=== PATIENT | female | born 1960 | race Caucasian/White ===

== ENCOUNTER 2020-02-28 15:26 | Outpatient (CLI) | payer BC, SELFPAY ==
--- NOTE | ~2020-02-28 | MM_ITS ---
EXAMINATION: MM screening blaise BI w blanca HISTORY: Screening mammogram TECHNIQUE: Craniocaudal and mediolateral oblique 3-D tomosynthesis images were obtained and synthetic 2-D images were generated. Bilateral rotated lateral cc views. CAD analysis was submitted and interp reted. COMPARISON: 12/07/2018, 12/01/2017, 11/25/2016 bilateral digital screening mammogram examinations BREAST PARENCHYMAL COMPOSITION: There are scattered areas of fibroglandular density. FINDINGS: There is no evidence of suspicious mass, calcification, or architectural distortion to sugg est malignancy in either breast. There has been no suspicious interval change. IMPRESSION: 1. No mammographic evidence of malignancy. 2. Recommend routine screening mammography in one year. BI-RADS Category 1: Negative Reviewed, dictated and finalized at location A.
== END 2020-02-28 15:27 | disposition home or self-care (01) ==
LOC: ANHIMG 15:31
PROVIDERS: PCP Internal Medicine; Visit Provider Internal Medicine
DX: Z12.31 Encounter for screening mammogram for malignant neoplasm of breast (principal)
CPT/HCPCS: 77063; 77067

== ENCOUNTER 2021-03-05 14:34 | Outpatient (CLI) | payer BC, SELFPAY ==
--- NOTE | ~2021-03-05 | MM_ITS ---
EXAMINATION: MM screening blaise BI w blanca HISTORY: Screening mammogram TECHNIQUE: Craniocaudal and mediolateral oblique 3-D tomosynthesis images were obtained and synthetic 2-D images were generated. CAD analysis was submitted and interpreted. COMPARISON: 02/28/2020, 12/03/2018, 12/01/2017 bilateral digital screening mammogram examinations BREAST PARENCHYMAL COMPOSITION: The breasts are heterogeneously dense, which may obscure small masses . FINDINGS: There is no evidence of suspicious mass, calcification, or architectural distortion to sugg est malignancy in either breast. There has been no suspicious interval change. IMPRESSION: 1. No mammographic evidence of malignancy. 2. Recommend routine screening mammography in one year. BI-RADS Category 1: Negative Reviewed, dictated and finalized at location A.
== END 2021-03-05 14:35 | disposition home or self-care (01) ==
LOC: ANHIMG 14:37
PROVIDERS: PCP Internal Medicine; Visit Provider Internal Medicine
DX: Z12.31 Encounter for screening mammogram for malignant neoplasm of breast (principal)
CPT/HCPCS: 77063; 77067

== ENCOUNTER 2022-05-27 14:35 | Outpatient (CLI) | payer BC, SELFPAY ==
--- NOTE | ~2022-05-27 | MM_ITS ---
EXAMINATION: MM screening blaise BI w blanca HISTORY: Screening TECHNIQUE: Craniocaudal and mediolateral oblique 3-D tomosynthesis images were obtained and synthetic 2-D images were generated. CAD analysis was submitted and interpreted. COMPARISON: Comparison to multiple prior studies sequentially, with oldest reviewed study dated 03/14. BREAST PARENCHYMAL COMPOSITION: The breasts are heterogeneously dense, which may obscure small masses . FINDINGS: There is no evidence of suspicious mass, calcification, or architectural distortion to sugg est malignancy in either breast. There has been no suspicious interval change. IMPRESSION: 1. No mammographic evidence of malignancy. 2. Recommend routine screening mammography in one year. BI-RADS Category 1: Negative Reviewed, dictated and finalized at location B. NICAL ASSISTANT
== END 2022-05-27 14:36 | disposition home or self-care (01) ==
LOC: ANHIMG 14:36
PROVIDERS: PCP Internal Medicine; Visit Provider Internal Medicine
DX: Z12.31 Encounter for screening mammogram for malignant neoplasm of breast (principal)
CPT/HCPCS: 77063; 77067

== ENCOUNTER 2024-11-29 15:20 | Outpatient (CLI) | payer MEDICARE, SELFPAY ==
--- NOTE | ~2024-11-29 | MM_ITS ---
EXAMINATION: MM screening blaise BI w blanca HISTORY: Screening TECHNIQUE: Craniocaudal and mediolateral oblique 3-D tomosynthesis images were obtained and synthetic 2-D images were generated. CAD analysis was submitted and interpreted. COMPARISON: Comparison to multiple prior studies sequentially, with oldest reviewed study dated 11/25. BREAST PARENCHYMAL COMPOSITION: Not dense: There are scattered areas of fibroglandular density. FINDINGS: There is no evidence of suspicious mass, calcification, or architectural distortion to sugg est malignancy in either breast. There has been no suspicious interval change. IMPRESSION: 1. No mammographic evidence of malignancy. 2. Recommend routine screening mammography in one year. BI-RADS Category 1: Negative Reviewed, dictated and finalized at location A.
--- OUTSIDE RECORDS SUMMARY | 2024-11-29 16:34 | XMS_ITS | Clinical Summary ---
Author Organization [facility] Address [address] [place] [address] Care Team Providers Care Turbine Room Attendant Name Role Phone Dmitri Hutchinson MD Primary Care Provider Un available Social History Tobacco Use Types Packs/Day Years Used Date Smoking Tobacco: Never Assessed Comments Unknown Sex and Gender Information Value Date Recorded Sex Assigned at Not on file Legal Sex Female 8:00 PM CDT Gender Identity Not on file Sexual Orientation Not on file Last Filed Vital Signs Vital Sign Reading Time Taken Comments Blood Pressure 106/64 07/17/2016 1:38 PM EMERGENCY WORKER Pulse 76 07/17/2016 1:38 PM EMERGENCY WORKER Temperature - - Respiratory Rate - - Oxygen Saturation - - Inhaled Oxygen Concentration - - Weight 86.2 kg (190 lb) 07/17/2016 1:38 PM EMERGENCY WORKER Height 165.1 cm (5' 5) 04/11/2015 1:37 PM CDT Body Mass Index 31.62 04/11/2015 1:37 PM CDT Plan of Treatment Health Maintenance Due Date Last Done Comments Pneumococcal Vaccine: 50+ Ye ars (1 of 1 - PCV) 2009 Zoster Vaccines (1 of 2) 2009 Mammogram Screening 10/01/2017 10/02/2015 Colorectal Cancer Screening Colonoscopy (10 Years) 06/16/2023 06/16/2013 COVID-19 Vaccine (1 - 2023-2 5 season) 2024 Dexa Scan (General) 2024 DTaP, Tdap and Td Vaccines ( 2 - Td or Tdap) 07/17/2026 07/17/2016 RSV Immunization or 60+ Years (1 - 1-dose 75+ series) 2034 Hepatitis C Completed 12/27/2014 Meningococcal B Vaccine Aged Out No l onger eligible based on patient's age to complete this topic Meningococcal Vaccine Aged Out No ray theresa eligible based on patient's age to complete this topic RSV Immunizations Under 20 Months Aged Out No longer eligible based on patient's age to complete this topic Procedures Procedure Name Priority Date/Time Associated Diagnosis Comments MG SCREENING KATHRYN DIGI Routine 10/02/2015 2:21 PM CDT HEPATITIS C ANTIBODY Routine 12/27/2014 9:58 AM CDT COLONOSCOPY Routine 06/16/2013 12:00 AM EMERGENCY WORKER from Last 3 Months or Most Recently Relevant to Health Maintenance Results * MG SCREENING KATHRYN DIGI (10/02/2015 2:21 PM CDT) Anatomical Region Laterality Modality Breast Bilateral Mammography 10/02/2015 2:21 PM CDT 10/02/2015 2:21 PM CDT Narrative 10/02/2015 2:26 PM CDT CATRACHITO GEORGE ADMIT/SERVICE DATE: 10/02/15 ACCT: [id number] DISCHARGE DATE: : 1960 SEX: F ORD SITE: [facility] PT TYPE: REG CLI ORDERING MD: DMITRI HUTCHINSON MD STUDY DATE REPORT # ORDER # EXT ORDER ID 10/02/15 [id number] PROC CODE: [id number] PROCEDURE DESCRIPTION: MG SCREEN MAMMO DIGITAL BI IMPRESSION: STABLE MAMMOGRAPHIC APPEARANCE TO THE BREAST PARENCHYMA. ASSESSMENT: ACR BI-RADS CATEGORY 2 - BENIGN. RECOMMENDATION: 1: ROUTINE SCREENING MAMMOGRAM BILATERAL IN 1 YEAR COMMENTS: A NEGATIVE OR BENIGN MAMMOGRAPHY REPORT SHOULD NOT DISCOURAGE FOLLOW-UP OR BIOPSY OF A CLINICALLY SIGNIFICANT FINDING AND/OR ABNORMALITY. REGIONS OF DENSE BREAST TISSUE MAY OBSCURE SMALL NEOPLASMS. EXAMINATION: DIGITAL BILATERAL SCREENING MAMMOGRAM CLINICAL HISTORY: NO CURRENT SYMPTOMS OR COMPLAINTS. COMPARISON: 03/14/2014, 07/29/2011. TECHNIQUE: DIGITAL SCREENING MAMMOGRAPHY OF BOTH BREASTS WAS PERFORMED. THIS STUDY WAS READ WITH THE ASSISTANCE OF A COMPUTER-AIDED DETECTION SYSTEM. TISSUE DENSITY: THE BREAST TISSUE IS HETEROGENEOUSLY DENSE. FINDINGS: CRANIOCAUDAD AND MEDIAL LATERAL OBLIQUE MAMMOGRAPHIC VIEWS OF BOTH BREASTS WERE OBTAINED. THERE IS NO NEW MASS. THERE ARE NO SUSPICIOUS MICROCALCIFICATIONS. THERE ARE STABLE AREAS OF ASYMMETRIC BREAST PARENCHYMA. BENIGN-APPEARING CALCIFICATIONS ARE SEEN. ELECTRONICALLY SIGNED BY: RAHEL HERNANDEZ10/02/2015 2:22 PM Procedure Note Alejandro Tomas MD - 04/09/2018 [facility] ADMIT/SERVICE DATE:10/02/15 ACCT: [id number] DISCHARGE DATE: : 1960 SEX: F [facility] TYPE: REG CLI ORDERING MD:DMITRI HUTCHINSON MD STUDY DATE REPORT # ORDER # EXT ORDER ID 10/02/15 [id number] PROC CODE: [id number] PROCEDURE DESCRIPTION: MG SCREEN MAMMO DIGITAL BI IMPRESSION: STABLE MAMMOGRAPHIC APPEARANCE TO THE BREAST PARENCHYMA. ASSESSMENT: ACR BI-RADS CATEGORY 2 - BENIGN. RECOMMENDATION: 1: ROUTINE SCREENING MAMMOGRAM BILATERAL IN 1 YEAR COMMENTS: A NEGATIVE OR BENIGN MAMMOGRAPHY REPORT SHOULD NOT DISCOURAGE FOLLOW-UP OR BIOPSY OF A CLINICALLY SIGNIFICANT FINDING AND/OR ABNORMALITY. REGIONS OF DENSE BREAST TISSUE MAY OBSCURE SMALL NEOPLASMS. EXAMINATION: DIGITAL BILATERAL SCREENING MAMMOGRAM CLINICAL HISTORY: NO CURRENT SYMPTOMS OR COMPLAINTS. COMPARISON: 03/14/2014, 07/29/2011. TECHNIQUE: DIGITAL SCREENING MAMMOGRAPHY OF BOTH BREASTS WAS PERFORMED. THIS STUDY WAS READ WITH THE ASSISTANCE OF A COMPUTER-AIDED DETECTION SYSTEM. TISSUE DENSITY: THE BREAST TISSUE IS HETEROGENEOUSLY DENSE. FINDINGS: CRANIOCAUDAD AND MEDIAL LATERAL OBLIQUE MAMMOGRAPHIC VIEWS OF BOTH BREASTS WERE OBTAINED. THERE IS NO NEW MASS. THERE ARE NO SUSPICIOUS MICROCALCIFICATIONS. THERE ARE STABLE AREAS OF ASYMMETRIC BREAST PARENCHYMA. BENIGN-APPEARING CALCIFICATIONS ARE SEEN. ELECTRONICALLY SIGNED BY: RAHEL HERNANDEZ10/02/2015 2:22 PM Dmitri Hutchinson MD MAMMO Final Res ult * HEPATITIS C ANTIBODY (12/27/2014 9:58 AM CDT) HEPATITIS C AB NON-REACT SHAINA NON-REACT SHAINA [facility] TO EPIC CONVERSION SIGNAL TO CUTOFF 0.02 <1.00 [facility] TO [facility] CONVERSION Comment: Result Comment: Test Performed at: [facility] [place] [id number] [address] [id number] JIM LEDEZMA DO,MPH 12/27/2014 9:58 AM CDT 12/27/2014 9:58 AM CDT Narrative [facility] TO EPIC CONVERSION - 12/28/2014 11:53 AM CDT Result Communication: Mail Results to Patient Dmitri Hutchinson MD LABORATORY Final Res ult Performing Organization Address [facility] Co de Phone Number [facility] TO EPIC CONVERSION * Colonoscopy (06/16/2013 12:00 AM EMERGENCY WORKER) 06/16/2013 06/16/2013 Narrative [facility] TO EPIC CONVERSION - 06/16/2013 12:00 AM EMERGENCY WORKER Documented hx of procedure Procedure Note Alejandro Tomas MD - 04/19/2018 Documented hx of procedure Alejandro Fowler Md, MD GI PROCEDURE ORDERABLES Final Result Performing Organization Address [facility] Co de Phone Number [facility] TO EPIC CONVERSION from Last 3 Months or Most Recently Relevant to Health Maintenance Care Teams Turbine Room Attendant Relationship Specialty Start Date End Date Dmitri Hutchinson MD PCP - General 07/17/16
--- OUTSIDE RECORDS SUMMARY | 2024-11-29 16:34 | XMS_ITS | Encounter Summary ---
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 Historical Provider Final Res ult documented in this encounter Visit Diagnoses Not on filedocumented in this encounter Care Teams Cotton Feeder Relationship Specialty Start Date End Date Yamileth Smith MD [address] [place] [address] PCP - General Internal Medicine 09/07/18 documented as of this encounter
--- OUTSIDE RECORDS SUMMARY | 2024-11-29 16:35 | XMS_ITS | Referral Summary ---
Author Organization [facility] Address [address] [place] [phone] Care Team Providers Care Terminal Block Assembler Name Role Phone Yamileth Smith MD Primary Care Provider [phone] Encounters Date Type Department Care Team Description 10/13/2024 Telephone [facility] Internal Medicine [address] [place] [phone] Yamileth Smith MD Medical Question/Miscellaneous 10/04/2024 4:00 PM CDT Office Visit [facility] Internal Medicine [address] [place] [phone] Yamileth Smith MD Essential hypertension (Primary Dx); Gastroesophageal reflux disease without esophagitis; Migraine without aura and without status migrainosus, not intractable; Mixed hyperlipidemia; BMI 32.0-32.9,adult; Primary insomnia; Colon cancer screening 09/30/2024 Orders Only [facility] Internal Medicine [address] [place] [phone] Yamileth Smith MD from Last 3 Months Allergies No known active allergies Medications simvastatin (ZOCOR) 20 mg tablet Take 1 tablet (20 mg total) by mouth nightly 90 tablet 5 Active omeprazole (PriLOSEC) 40 mg capsule Take 1 capsule (40 mg total) by mouth daily 90 capsule 5 Active hydroCHLOROthia zide 12.5 mg tablet Take 1 tablet (12.5 mg total) by mouth daily 90 tablet 1 5 Active famotidine (PEPCID) 40 mg tablet Take 1 tablet (40 mg total) by mouth daily 90 tablet 1 5 12/29/19 25 Active clobetasoL (TEMOVATE) 0.05 % ointment Apply topically 2 (two) times a day 60 g 3 5 Active losartan (COZAAR) 100 mg tablet Take 1 tablet (100 mg total) by mouth daily 90 tablet 1 5 07/01/19 26 Active traZODone (DESYREL) 100 mg tablet Take 1 tablet (100 mg total) by mouth nightly as needed for sleep 90 tablet 1 5 Active HYDROcodone-uli taminophen (NORCO) 5-325 mg per tabletIndicatio ns:Pain Take 1 tablet by mouth daily as needed for pain 30 tablet 5 Active HYDROcodone-uli taminophen (NORCO) 5-325 mg per tabletIndicatio ns:Pain Take 1 tablet by mouth daily as needed for pain 30 tablet 5 11/15/19 25 Discontinu ed(Reorder ) Active Problems Problem Noted Date Diagnosed Date Primary insomnia 10/04/2024 Assessment & Plan (10/04/2024 4:17 PM CDT): Patient had very good result with the Remeron but she gained weight. She likes to try different medication because of the weight gain. Will stop Remeron and start her on trazodone 100 mg q.h.s.. Skin rash 07/01/2024 Assessment & Plan (07/01/2024 4:45 PM INSULATION MACHINE OPERATOR): Patient with skin rash on the rest of both hands and lower back area. It looks like dermatitis. She did not respond well to triamcinolone. We will try Temovate 0.05% twice daily and will make a referral to see a sales agent because of the chronicity of the symptoms. Pain in both upper extremities 01/15/2021 Assessment & Plan (01/15/2021 4:57 PM CDT): Patient will continue to wear wrist braces. Will obtain nerve conduction study of both arms and make recommendations after that. Numbness and tingling in right hand 10/09/2020 Assessment & Plan (10/09/2020 4:37 PM CDT): Patient has symptoms of carpal tunnel syndrome I offered her nerve conduction study but she declined. Patient will try wrist splint and she will call if she changes her mind Pap smear for cervical cancer screening 12/23/19 20 Assessment & Plan (10/09/2020 4:37 PM CDT): Followed by Gynecology Assessment & Plan (12/23/2019 4:54 PM CDT): The patient is under the care of camp housekeeper for Pap smear and mammogram. Her last Pap smear was 3 years ago. Migraine without aura and wi thout status migrainosus, not intractable 04/05/2019 Assessment & Plan (10/04/2024 8:17 AM CDT): Asymptomatic. Stable without medications Assessment & Plan (06/02/2023 1:13 PM INSULATION MACHINE OPERATOR): Asymptomatic. Stable without medications Assessment & Plan (02/24/2023 8:25 AM CDT): Asymptomatic Assessment & Plan (11/25/2022 4:59 PM CDT): Asymptomatic Assessment & Plan (11/05/2021 1:09 PM CDT): Asymptomatic Assessment & Plan (08/06/2021 4:32 PM INSULATION MACHINE OPERATOR): Patient has no headache Assessment & Plan (10/09/2020 4:36 PM CDT): Asymptomatic Assessment & Plan (07/12/2019 4:23 PM INSULATION MACHINE OPERATOR): Asymptomatic Assessment & Plan (04/05/2019 3:25 PM CDT): We will start her on Imitrex 50 mg p.r.n. And side effects were explained and how to take the medication was explained. Will obtain MRI of the brain for further evaluation. She will call for persistent headache. Essential hypertension 10/14/2016 Assessment & Plan (10/04/2024 8:17 AM CDT): Continue current medications. Discussed low-salt diet. Discussed exercise on regular basis. Will continue to monitor Assessment & Plan (07/01/2024 4:44 PM INSULATION MACHINE OPERATOR): Patient stated that her blood pressure sometimes runs high. She consumes large amount of salt. We discussed the importance of low-salt diet.. Increase losartan to 100 mg daily. Continue hydrochlorothiazide 25 mg daily.. Discussed exercise on regular basis. Will continue to monitor Assessment & Plan (06/02/2023 1:13 PM INSULATION MACHINE OPERATOR): Continue current medications. Discussed low-salt diet. Discussed exercise on regular basis. Will continue to monitor Assessment & Plan (02/24/2023 8:25 AM CDT): Continue current medications. Discussed low-salt diet. Discussed exercise on regular basis. Will continue to monitor Assessment & Plan (11/25/2022 4:59 PM CDT): Continue current medications. Discussed low-salt diet. Discussed exercise on regular basis. Will continue to monitor Assessment & Plan (08/15/2022 12:54 PM INSULATION MACHINE OPERATOR): Continue current medications. Discussed low-salt diet. Discussed exercise on regular basis. Will continue to monitor Assessment & Plan (05/13/2022 1:06 PM INSULATION MACHINE OPERATOR): Continue current medications. Discussed low-salt diet. Discussed exercise on regular basis. Will continue to monitor Assessment & Plan (02/04/2022 1:11 PM CDT): Continue current medications. Discussed low-salt diet. Discussed exercise on regular basis. Will continue to monitor Assessment & Plan (11/05/2021 1:08 PM CDT): Continue current medications. Discussed low-salt diet. Discussed exercise on regular basis. Will continue to monitor Assessment & Plan (08/06/2021 12:58 PM INSULATION MACHINE OPERATOR): Continue current medications. Discussed low-salt diet. Discussed exercise on regular basis. Will continue to monitor Assessment & Plan (04/16/2021 4:56 PM CDT): Continue current medications. Discussed low-salt diet. Discussed exercise on regular basis. Will continue to monitor Assessment & Plan (01/15/2021 12:52 PM CDT): Continue current medications. Discussed low-salt diet. Discussed exercise on regular basis. Will continue to monitor Assessment & Plan (10/09/2020 4:36 PM CDT): Continue current medications. Discussed low-salt diet. Discussed exercise on regular basis. Will continue to monitor Assessment & Plan (03/27/2020 4:56 PM CDT): Continue current medications. Discussed low-salt diet. Discussed exercise on regular basis. Will continue to monitor Assessment & Plan (12/23/2019 4:54 PM CDT): Continue current medications. Discussed low-salt diet. Discussed exercise on regular basis. Will continue to monitor Assessment & Plan (07/12/2019 4:23 PM INSULATION MACHINE OPERATOR): Continue current medications. Discussed low-salt diet. Discussed exercise on regular basis. Will continue to monitor Assessment & Plan (04/05/2019 3:24 PM CDT): Continue current medications. Discussed low-salt diet. Discussed exercise on regular basis. Will continue to monitor Assessment & Plan (12/30/2018 9:01 PM CDT): Continue current medications. Discussed low-salt diet. Discussed exercise on regular basis. Will continue to monitor Gastroesophageal reflux disease without esophagi tis 10/14/2016 Assessment & Plan (10/04/2024 8:17 AM CDT): Controlled on Prilosec and Pepcid Assessment & Plan (07/01/2024 8:28 AM INSULATION MACHINE OPERATOR): Controlled on Prilosec and Pepcid Assessment & Plan (02/24/2023 5:22 PM CDT): Controlled on Prilosec and Pepcid Assessment & Plan (11/25/2022 4:59 PM CDT): Controlled on Pepcid Assessment & Plan (08/15/2022 12:54 PM INSULATION MACHINE OPERATOR): Controlled on Prilosec and discussed avoidance of food that triggers the symptoms Assessment & Plan (05/13/2022 1:06 PM INSULATION MACHINE OPERATOR): Controlled on Prilosec Assessment & Plan (02/04/2022 1:11 PM CDT): Controlled on Prilosec Assessment & Plan (11/05/2021 1:08 PM CDT): Controlled on Prilosec Assessment & Plan (08/06/2021 12:58 PM INSULATION MACHINE OPERATOR): Controlled on omeprazole Assessment & Plan (04/16/2021 4:56 PM CDT): Asymptomatic Assessment & Plan (01/15/2021 12:52 PM CDT): Controlled on diet and omeprazole Assessment & Plan (03/27/2020 4:56 PM CDT): Controlled on Pepcid Assessment & Plan (12/23/2019 4:54 PM CDT): Controlled on Prilosec and Pepcid Assessment & Plan (07/12/2019 4:23 PM INSULATION MACHINE OPERATOR): Controlled on Prilosec Assessment & Plan (04/05/2019 3:24 PM CDT): Continue Prilosec in the morning and we will add Pepcid 40 mg at night. The patient was advised to call us in 3-4 weeks for persistent symptoms and in that case will make a referral to see a test lead for EGD Assessment & Plan (12/30/2018 9:02 PM CDT): Controlled on current medication Mixed hyperlipidemia 10/14/2016 Assessment & Plan (10/04/2024 8:17 AM CDT): Controlled on current medications. Continue low-fat diet. Will continue to monitor . Assessment & Plan (07/01/2024 8:28 AM INSULATION MACHINE OPERATOR): Controlled on current medications. Continue low-fat diet. Will continue to monitor . Assessment & Plan (06/02/2023 1:13 PM INSULATION MACHINE OPERATOR): Controlled on current medications. Continue low-fat diet. Will continue to monitor . Assessment & Plan (02/24/2023 8:25 AM CDT): Controlled on current medications. Continue low-fat diet. Will continue to monitor . Assessment & Plan (11/25/2022 4:59 PM CDT): Controlled on current medications. Continue low-fat diet. Will continue to monitor . Assessment & Plan (08/15/2022 12:54 PM INSULATION MACHINE OPERATOR): Controlled on current medications. Continue low-fat diet. Will continue to monitor . Assessment & Plan (05/13/2022 1:07 PM INSULATION MACHINE OPERATOR): Controlled on current medications. Continue low-fat diet. Will continue to monitor . Assessment & Plan (02/04/2022 1:11 PM CDT): Controlled on current medications. Continue low-fat diet. Will continue to monitor . Assessment & Plan (11/05/2021 1:08 PM CDT): Controlled on current medications. Continue low-fat diet. Will continue to monitor . Assessment & Plan (08/06/2021 12:58 PM INSULATION MACHINE OPERATOR): Controlled on current medications. Continue low-fat diet. Will continue to monitor . Assessment & Plan (04/16/2021 4:56 PM CDT): Controlled on current medications. Continue low-fat diet. Will continue to monitor . Assessment & Plan (01/15/2021 12:52 PM CDT): Controlled on current medications. Continue low-fat diet. Will continue to monitor . Assessment & Plan (10/09/2020 4:36 PM CDT): Controlled on current medications. Continue low-fat diet. Will continue to monitor . Assessment & Plan (03/27/2020 4:56 PM CDT): Controlled on current medications. Continue low-fat diet. Will continue to monitor . Assessment & Plan (12/23/2019 4:54 PM CDT): Controlled on current medications. Continue low-fat diet. Will continue to monitor . Assessment & Plan (07/12/2019 4:23 PM INSULATION MACHINE OPERATOR): Controlled on current medications. Continue low-fat diet. Will continue to monitor . Assessment & Plan (04/05/2019 3:24 PM CDT): Controlled on current medications. Continue low-fat diet. Will continue to monitor . Assessment & Plan (12/30/2018 9:02 PM CDT): Controlled on current medications. Continue low-fat diet. Will continue to monitor . Chronic left-sided low back pain with left-sided sciatica 10/14/2016 Assessment & Plan (07/01/2024 8:28 AM INSULATION MACHINE OPERATOR): Controlled on Delavan p.r.n. Assessment & Plan (06/02/2023 1:13 PM INSULATION MACHINE OPERATOR): Controlled on Delavan p.r.n. Assessment & Plan (11/25/2022 4:59 PM CDT): Controlled on Delavan p.r.n. Assessment & Plan (08/15/2022 12:55 PM INSULATION MACHINE OPERATOR): Controlled on Delavan p.r.n. with no side effects with the medication Assessment & Plan (05/13/2022 1:07 PM INSULATION MACHINE OPERATOR): Controlled on Delavan Assessment & Plan (02/04/2022 1:11 PM CDT): Controlled on Delavan Assessment & Plan (11/05/2021 1:09 PM CDT): Controlled on Delavan Assessment & Plan (08/06/2021 12:58 PM INSULATION MACHINE OPERATOR): Controlled on Delavan Assessment & Plan (04/16/2021 4:56 PM CDT): Continue Delavan p.r.n.. Advised to avoid taking NSAIDs more than on occasional basis Assessment & Plan (01/15/2021 12:52 PM CDT): Controlled on Delavan p.r.n. Assessment & Plan (10/09/2020 4:36 PM CDT): Continue Delavan p.r.n. Assessment & Plan (03/27/2020 4:56 PM CDT): Controlled on Delavan and the patient has no signs of abuse Assessment & Plan (12/23/2019 4:54 PM CDT): Controlled on Delavan Assessment & Plan (07/12/2019 4:23 PM INSULATION MACHINE OPERATOR): Controlled on Delavan Assessment & Plan (04/05/2019 3:25 PM CDT): Controlled on Delavan Assessment & Plan (12/30/2018 9:02 PM CDT): The patient has a chronic back pain secondary to bulging disc and she takes Delavan p.r.n. With good relief. Immunizations Immunization Administration Dates Next Due Influenza, Quadrivalent, Split, Intramuscular Influenza, Quadrivalent, Spl it, Preservative Free, Intramuscular 06/02/2023,05/13/2022 Influenza, Trivalent, Preservative Free, Intramu scular 07/01/2024 Pneumococcal Conjugate Pcv20 07/01/2024 Tdap 07/12/2019,07/17/2016 Social History Tobacco Use Types Packs/Day Years Used Date Smoking Tobacco: Former Cigarettes Q uit: 01/01/2000 Smokeless Tobacco: Never Tobacco Cessation:Counseling Given: Not Answered Alcohol Use Standard Drinks/Week Comments Not Currently 0 (1 standard drink = 0.6 oz pur e alcohol) AUDIT-C Answer Date Recorded Q1: How often do you have a drink containing alcohol? Never 10/04/2024 Q2: How many drinks containi ng alcohol do you have on a typical day when you are drinking? Patient does not drink Q3: How often do you have si x or more drinks on one occasion? Never 10/04/2024 PHQ-2 Answer Date Recorded PHQ-2 Total Score (If total score is 3 or more points, staff should administer the PHQ-9) 0 10/04/2024 Comments Unknown Sex and Gender Information Value Date Recorded Sex Assigned at Not on file Legal Sex Female 3:40 AM INSULATION MACHINE OPERATOR Gender Identity Female 11/05/2021 8:51 AM CDT Sexual Orientation Not on file Last Filed Vital Signs Vital Sign Reading Time Taken Comments Blood Pressure 128/80 10/04/2024 3:50 PM CDT Pulse 62 10/04/2024 3:50 PM CDT Temperature 36.2 C (97.1 F) 10/04/2024 3:50 PM CDT Respiratory Rate 16 10/04/2024 3:50 PM CDT Oxygen Saturation 97% 10/04/2024 3:50 PM CDT Inhaled Oxygen Concentration - - Weight 92.3 kg (203 lb 6.4 oz) 10/04/2024 3:50 P M CDT Height 167.6 cm (5' 6) 10/04/2024 3:50 PM CDT Body Mass Index 32.83 10/04/2024 3:50 PM CDT Plan of Treatment Not on file Procedures Procedure Name Priority Date/Time Associated Diagnosis Comments COMPREHENSIVE METABOLIC PANEL Routine 09/30/2024 11:41 AM CDT LIPID PANEL Routine 09/30/2024 11:41 AM CDT CBC WITH AUTO DIFFERENTIAL Routine 09/30/2024 11:41 AM CDT HEPATITIS C ANTIBODY Routine 08/14/2022 10:20 AM INSULATION MACHINE OPERATOR Encounter for hepatitis C screening test for low risk patient HM MAMMOGRAPHY Routine 05/27/2022 COLONOSCOPY Routine 02/11/2022 from Last 3 Months or Most Recently Relevant to Health Maintenance Results * (ABNORMAL) CBC with auto differential (09/30/2024 11:41 AM CDT) WBC 7.3 3.8 - 10.8 Thousand/u L [facility] RBC, POC 5.05 3.80 - 5.10 Million/uL [facility] Hgb 15.2 11.7 - 15.5 g/dL [facility] Hct 46.6(H) 35.0 - 45.0 % [facility] MCV 92.3 80.0 - 100.0 fL [facility] MCH 30.1 27.0 - 33.0 pg [facility] MCHC 32.6 32.0 - 36.0 g/dL [facility] Comment: For adults, a slight decrease in the calculated MCHC value (in the range of 30 to 32 g/dL) is most likely not clinically significant; however, it should be interpreted with caution in correlation with other red cell parameters and the patient's clinical condition. Rdw 13.3 11.0 - 15.0 % [facility] Platelets 238 140 - 400 Thousand/u L [facility] MPV 10.4 7.5 - 12.5 fL [facility] Neutrophils, abs 4,198 1,500 - 7,800 cells/uL [facility] Lymphocytes, abs 2,234 850 - 3,900 cells/uL [facility] Monocyte abs 540 200 - 950 cells/uL [facility] Eosinophils, abs 270 15 - 500 cells/uL [facility] Basophils, abs 58 0 - 200 cells/uL [facility] Neutrophils 57.5 % [facility] Lymphocyte pct 30.6 % [facility] Monocytes 7.4 % [facility] Eosinophils 3.7 % [facility] Basophils 0.8 % [facility] 09/30/2024 11:4 1 AM CDT 09/30/2024 11:41 AM CDT [facility] - 10/01/2024 2:11 AM CDT FASTING:YES FASTING: YES us Yamileth Smith MD LAB BLOOD ORDERABLES Final Result [facility] [id number] [place] [address] * (ABNORMAL) Lipid panel (09/30/2024 11:41 AM CDT) [facility] Cholesterol 182 <200 mg/dL [facility] HDL 47(L) > OR = 50 mg/dL [facility] Triglycerides 260(H) <150 mg/dL [facility] Comment: If a non-fasting specimen was collected, consider repeat triglyceride testing on a fasting specimen if clinically indicated. Kirill et al. J. of Clin. Lipidol. 2015;9:129-169. LDL 98 mg/dL (calc) [facility] Comment: Reference range: <100 Desirable range <100 mg/dL for primary prevention; <70 mg/dL for patients with CHD or diabetic patients with > or = 2 CHD risk factors. LDL-C is now calculated using the Magdi-Bonilla calculation, which is a validated novel method providing better accuracy than the Friedewald equation in the estimation of LDL-C. Magdi SS et al. JAROD. 2013;310(19): 5255-6913 (http://education.[employer]/faq/RXB532) Chol/HDL ratio 3.9 <5.0 (calc) [facility] Non-HDL, (LDL+VLDL) 135(H) <130 mg/dL (calc) [facility] Comment: For patients with diabetes plus 1 major ASCVD risk factor, treating to a non-HDL-C goal of <100 mg/dL (LDL-C of <70 mg/dL) is considered a therapeutic option. 09/30/2024 11:4 1 AM CDT 09/30/2024 11:41 AM CDT Narrative [facility] - 10/01/2024 2:11 AM CDT FASTING:YES FASTING: YES Yamileth Smith MD LAB BLOOD ORDERABLES Final Result [facility] [address] [place] [address] * (ABNORMAL) Comprehensive metabolic panel (09/30/2024 11:41 AM CDT) [facility] Glucose 111(H) 65 - 99 mg/dL [facility] Comment: Fasting reference interval For someone without known diabetes, a glucose value between 100 and 125 mg/dL is consistent with prediabetes and should be confirmed with a follow-up test. BUN 16 7 - 25 mg/dL [facility] Creatinine 0.72 0.50 - 1.05 mg/dL [facility] eGFR 93 > OR = 60 mL/min/1.7 3m2 [facility] BUN/creat ratio SEE NOTE: 6 - 22 (calc) [facility] Comment: Not Reported: BUN and Creatinine are within reference range. Sodium 139 135 - 146 mmol/L [facility] Potassium, pl 4.3 3.5 - 5.3 mmol/L [facility] Chloride 99 98 - 110 mmol/L [facility] CO2 33(H) 20 - 32 mmol/L [facility] Calcium 9.9 8.6 - 10.4 mg/dL [facility] Protein, sr 6.8 6.1 - 8.1 g/dL [facility] Albumin 4.4 3.6 - 5.1 g/dL [facility] GLOBULIN 2.4 1.9 - 3.7 g/dL (calc) [facility] Alb/glob ratio 1.8 1.0 - 2.5 (calc) [facility] Bilirubin, total 0.4 0.2 - 1.2 mg/dL [facility] Alk phos 87 37 - 153 U/L [facility] AST 21 10 - 35 U/L [facility] ALT (SGPT) 32(H) 6 - 29 U/L [facility] 09/30/2024 11:4 1 AM CDT 09/30/2024 11:41 AM CDT Narrative [facility] - 10/01/2024 2:11 AM CDT FASTING:YES FASTING: YES us Yamileth Smith MD LAB BLOOD ORDERABLES Final Result [facility] [address] [place] [address] * Hepatitis C antibody (08/14/2022 10:20 AM INSULATION MACHINE OPERATOR) Hep C Ab NON-REACTI VE NON-REACT SHAIN[facility] SIGNAL TO CUT-OFF <0.02 <1.00 [facility] Comment: HCV antibody was non-reactive. There is no laboratory evidence of HCV infection. In most cases, no further action is required. However, if recent HCV exposure is suspected, a test for HCV RNA (test code 60246) is suggested. For additional information please refer to http://education.[employer]/faq/OXI97s5 (This link is being provided for informational/ educational purposes only.) Blood 08/14/2022 10:2 0 AM INSULATION MACHINE OPERATOR 08/14/2022 10:21 AM INSULATION MACHINE OPERATOR Yamileth Smith MD LAB MICROBIOLOGY - GENERAL ORDERABLES Final Result [facility] [id number] [id number] * HM MAMMOGRAPHY (05/27/2022) Mammography Normal Historical Provider MD HEALTH MAINTENANCE Final Result * Colonoscopy (02/11/2022) Anatomical Region Laterality Modality Other Narrative 02/11/2022 Follow up with biopsy Historical Provider ENDOSCOPY PROCEDURES Lupis l Result from Last 3 Months or Most Recently Relevant to Health Maintenance Insurance [employer]IC[employer] PPO Care Teams Terminal Block Assembler Relationship Specialty Start Date End Date Yamileth Smith MD [facility] [place] [address] PCP - General Internal Medicine 09/07/18
--- OUTSIDE RECORDS SUMMARY | 2024-11-29 16:35 | XMS_ITS | Clinical Summary ---
Author Organization [facility] Address [address] [place] [address] Care Team Providers Care Account Services Representative Name Role Phone Yamileth Smith MD Primary Care Provider [phone] Allergies No known active allergies Medications simvastatin (ZOCOR) 20 mg tablet Take 1 tablet (20 mg total) by mouth nightly 90 tablet 1 5 Active omeprazole (PriLOSEC) 40 mg capsule Take 1 capsule (40 mg total) by mouth daily 90 capsule 1 5 Active hydroCHLOROthia zide 12.5 mg tablet [...] 07/01/2024 Assessment & Plan (07/01/2024 4:45 PM CORRECTION OFFICER HEAD): Patient with skin rash on the rest of both hands and lower back area. It looks like dermatitis. She did not respond well to triamcinolone. We will try Temovate 0.05% twice daily and will make a referral to see a scuba diving instructor because of the chronicity of the symptoms. [...] The patient is under the care of job tracer for Pap smear and mammogram. Her last Pap smear was 3 years ago. Migraine without aura and wi thout status migrainosus, not intractable 04/05/2019 Assessment & Plan (10/04/2024 8:17 AM CDT): Asymptomatic. Stable without medications Assessment & Plan (06/02/2023 1:13 PM CORRECTION OFFICER HEAD): Asymptomatic. Stable without medications Assessment & Plan (02/24/2023 8:25 AM CDT): Asymptomatic Assessment & Plan (11/25/2022 4:59 PM CDT): Asymptomatic Assessment & Plan (11/05/2021 1:09 PM CDT): Asymptomatic Assessment & Plan (08/06/2021 4:32 PM CORRECTION OFFICER HEAD): Patient has no headache Assessment & Plan (10/09/2020 4:36 PM CDT): Asymptomatic Assessment & Plan (07/12/2019 4:23 PM CORRECTION OFFICER HEAD): Asymptomatic Assessment & Plan (04/05/2019 3:25 PM [...] monitor Assessment & Plan (07/01/2024 4:44 PM CORRECTION OFFICER HEAD): Patient stated that her blood pressure sometimes runs high. She consumes large amount of salt. We discussed the importance of low-salt diet.. Increase losartan to 100 mg daily. Continue hydrochlorothiazide 25 mg daily.. Discussed exercise on regular basis. Will continue to monitor Assessment & Plan (06/02/2023 1:13 PM CORRECTION OFFICER HEAD): Continue current medications. Discussed low-salt diet. Discussed [...] monitor Assessment & Plan (08/15/2022 12:54 PM CORRECTION OFFICER HEAD): Continue current medications. Discussed low-salt diet. Discussed exercise on regular basis. Will continue to monitor Assessment & Plan (05/13/2022 1:06 PM CORRECTION OFFICER HEAD): Continue current medications. Discussed low-salt diet. Discussed [...] monitor Assessment & Plan (08/06/2021 12:58 PM CORRECTION OFFICER HEAD): Continue current medications. Discussed low-salt diet. Discussed [...] monitor Assessment & Plan (07/12/2019 4:23 PM CORRECTION OFFICER HEAD): Continue current medications. Discussed low-salt diet. Discussed [...] Pepcid Assessment & Plan (07/01/2024 8:28 AM CORRECTION OFFICER HEAD): Controlled on Prilosec and Pepcid Assessment & Plan (02/24/2023 5:22 PM CDT): Controlled on Prilosec and Pepcid Assessment & Plan (11/25/2022 4:59 PM CDT): Controlled on Pepcid Assessment & Plan (08/15/2022 12:54 PM CORRECTION OFFICER HEAD): Controlled on Prilosec and discussed avoidance of food that triggers the symptoms Assessment & Plan (05/13/2022 1:06 PM CORRECTION OFFICER HEAD): Controlled on Prilosec Assessment & Plan (02/04/2022 1:11 PM CDT): Controlled on Prilosec Assessment & Plan (11/05/2021 1:08 PM CDT): Controlled on Prilosec Assessment & Plan (08/06/2021 12:58 PM CORRECTION OFFICER HEAD): Controlled on omeprazole Assessment & Plan (04/16/2021 4:56 PM CDT): Asymptomatic Assessment & Plan (01/15/2021 12:52 PM CDT): Controlled on diet and omeprazole Assessment & Plan (03/27/2020 4:56 PM CDT): Controlled on Pepcid Assessment & Plan (12/23/2019 4:54 PM CDT): Controlled on Prilosec and Pepcid Assessment & Plan (07/12/2019 4:23 PM CORRECTION OFFICER HEAD): Controlled on Prilosec Assessment & Plan (04/05/2019 3:24 PM CDT): Continue Prilosec in the morning and we will add Pepcid 40 mg at night. The patient was advised to call us in 3-4 weeks for persistent symptoms and in that case will make a referral to see a boner meat for EGD Assessment & Plan (12/30/2018 9:02 PM CDT): Controlled on current medication Mixed hyperlipidemia 10/14/2016 Assessment & Plan (10/04/2024 8:17 AM CDT): Controlled on current medications. Continue low-fat diet. Will continue to monitor . Assessment & Plan (07/01/2024 8:28 AM CORRECTION OFFICER HEAD): Controlled on current medications. Continue low-fat diet. Will continue to monitor . Assessment & Plan (06/02/2023 1:13 PM CORRECTION OFFICER HEAD): Controlled on current medications. Continue low-fat diet. Will continue to monitor . Assessment & Plan (02/24/2023 8:25 AM CDT): Controlled on current medications. Continue low-fat diet. Will continue to monitor . Assessment & Plan (11/25/2022 4:59 PM CDT): Controlled on current medications. Continue low-fat diet. Will continue to monitor . Assessment & Plan (08/15/2022 12:54 PM CORRECTION OFFICER HEAD): Controlled on current medications. Continue low-fat diet. Will continue to monitor . Assessment & Plan (05/13/2022 1:07 PM CORRECTION OFFICER HEAD): Controlled on current medications. Continue low-fat diet. Will continue to monitor . Assessment & Plan (02/04/2022 1:11 PM CDT): Controlled on current medications. Continue low-fat diet. Will continue to monitor . Assessment & Plan (11/05/2021 1:08 PM CDT): Controlled on current medications. Continue low-fat diet. Will continue to monitor . Assessment & Plan (08/06/2021 12:58 PM CORRECTION OFFICER HEAD): Controlled on current medications. Continue low-fat diet. [...] . Assessment & Plan (07/12/2019 4:23 PM CORRECTION OFFICER HEAD): Controlled on current medications. Continue low-fat diet. [...] 10/14/2016 Assessment & Plan (07/01/2024 8:28 AM CORRECTION OFFICER HEAD): Controlled on [place] p.r.n. Assessment & Plan (06/02/2023 1:13 PM CORRECTION OFFICER HEAD): Controlled on [place] p.r.n. Assessment & Plan (11/25/2022 4:59 PM CDT): Controlled on [place] p.r.n. Assessment & Plan (08/15/2022 12:55 PM CORRECTION OFFICER HEAD): Controlled on [place] p.r.n. with no side effects with the medication Assessment & Plan (05/13/2022 1:07 PM CORRECTION OFFICER HEAD): Controlled on [place] Assessment & Plan (02/04/2022 1:11 PM CDT): Controlled on [place] Assessment & Plan (11/05/2021 1:09 PM CDT): Controlled on [place] Assessment & Plan (08/06/2021 12:58 PM CORRECTION OFFICER HEAD): Controlled on [place] Assessment & Plan (04/16/2021 4:56 PM CDT): Continue [place] p.r.n.. Advised to avoid taking NSAIDs more than on occasional basis Assessment & Plan (01/15/2021 12:52 PM CDT): Controlled on [place] p.r.n. Assessment & Plan (10/09/2020 4:36 PM CDT): Continue [place] p.r.n. Assessment & Plan (03/27/2020 4:56 PM CDT): Controlled on [place] and the patient has no signs of abuse Assessment & Plan (12/23/2019 4:54 PM CDT): Controlled on [place] Assessment & Plan (07/12/2019 4:23 PM CORRECTION OFFICER HEAD): Controlled on [place] Assessment & Plan (04/05/2019 3:25 PM CDT): Controlled on [place] Assessment & Plan (12/30/2018 9:02 PM CDT): The patient has a chronic back pain secondary to bulging disc and she takes [place] p.r.n. With good relief. Encounters Date Type Department Care Team Description 10/13/2024 Telephone [facility] Medical [facility] Internal Medicine [address] [place] [address] [place] [phone] Yamileth Smith MD Medical Question/Miscellaneous 10/04/2024 4:00 PM CDT Office Visit [facility] Internal Medicine [address] [place] [address] [place] [phone] Yamileth Smith MD Essential hypertension (Primary Dx); Gastroesophageal reflux disease without esophagitis; Migraine without aura and without status migrainosus, not intractable; Mixed hyperlipidemia; BMI 32.0-32.9,adult; Primary insomnia; Colon cancer screening 09/30/2024 Orders Only [facility] Medical [facility] Internal Medicine [address] [place] [address] [place] [phone] Yamileth Smith MD from Last 3 Months Immunizations Immunization Administration Dates Next Due Influenza, Quadrivalent, Split, Intramuscular Influenza, Quadrivalent, Spl it, Preservative Free, Intramuscular 06/02/2023,05/13/2022 Influenza, Trivalent, Preservative Free, Intramu scular 07/01/2024 Pneumococcal Conjugate Pcv20 07/01/2024 Tdap 07/12/2019,07/17/2016 Surgical History Surgery Date Site/Laterality Comments SECTION HYSTERECTOMY Medical History Medical History Date Comments Essential hypertension Lumbago with sciatica, left side GERD (gastroesophageal reflux disease) HLD (hyperlipidemia) Family History Medical History Relation Name Comments Diabetes Mother Relation Name Status Comments Father Mother Social History Tobacco Use Types Packs/Day Years [...] on file Legal Sex Female 3:40 AM CORRECTION OFFICER HEAD Gender Identity Female 11/05/2021 8:51 AM CDT Sexual Orientation Not on file Obstetrics History Last Filed Vital Signs Vital Sign Reading [...] 10/04/2024 3:50 PM CDT Plan of Treatment Health Maintenance Due Date Last Done Comments Osteoporosis Screening-Bone Density Scan 1960 Hepatitis B Screening 1977 Zoster Vaccine (1 of 2) 2009 Colon Cancer Screening-FIT 02/11/202302/11, 02/11/2022, 05/15/2020, Additional history exists Breast Cancer Screening-Mammogram 05/27/2023 05/27/2022, 03/05/2021, 02/28/2020, Additional history exists Covid-19 Vaccine (2023-2 5 season) 2024 06/24/2021, 10/02/2020, 09/11/2020 Colon Cancer Screening-Colonoscopy 02/11/2025 02/11/2022, 02/11/2022, 10/01/2010 Well Visit 65+ 07/01/2025 07/01/2024 Depression Screening 10/04/2025 10/04/2024, 07/01/2024, 11/25/2022, Additional history exists Fall Risk Assessment 10/04/2025 10/04/2024, 07/01/2024, 11/25/2022, Additional history exists DTaP/Tdap/Td Vaccine (3 - Td or Tdap) 07/12/2029 07/12/2019, 07/17/2016 Colon Cancer Screening-CT Colonography Discontinued 02/11/2022, 02/11/2022, 10/01/2010 Colon Cancer Screening-DNA Stool Discontinued 02/11/2022, 02/11/2022, 10/01/2010 Colon Cancer Screening-Sigmoidoscopy Discontinued 02/11/2022, 02/11/2022, 10/01/2010 Hepatitis C Screening Completed 08/14/2022 Influenza Vaccine Discontinued 07/01/2024, , 05/13/2022, Additional history exists Pneumococcal vaccine 65+ Completed 07/01/2024 Procedures Procedure Name Priority Date/Time Associated Diagnosis Comments COMPREHENSIVE METABOLIC PANEL Routine 09/30/2024 11:41 AM CDT LIPID PANEL Routine 09/30/2024 11:41 AM CDT CBC WITH AUTO DIFFERENTIAL Routine 09/30/2024 11:41 AM CDT HEPATITIS C ANTIBODY Routine 08/14/2022 10:20 AM CORRECTION OFFICER HEAD Encounter for hepatitis C screening test for [...] Platelets 238 140 - 400 Thousand/u L [facility] MPV 10.4 7.5 - 12.5 fL [facility] Neutrophils, abs 4,198 1,500 - 7,800 cells/uL [facility] Lymphocytes, abs 2,234 850 - 3,900 cells/uL [facility] Monocyte abs 540 200 - 950 cells/uL [facility] Eosinophils, abs 270 15 - 500 cells/uL [facility] Basophils, abs 58 0 - 200 cells/uL [facility] Neutrophils 57.5 % [facility] Lymphocyte pct 30.6 % [facility] Monocytes 7.4 % [facility] Eosinophils 3.7 % [facility] Basophils 0.8 % [facility] 09/30/2024 11:4 1 AM CDT 09/30/2024 11:41 AM CDT Narrative [facility] - 10/01/2024 2:11 AM CDT FASTING:YES FASTING: YES Yamileth Smith MD LAB BLOOD ORDERABLES Final Result [facility] [address] [place] [address] * (ABNORMAL) Lipid panel (09/30/2024 11:41 AM CDT) Cholesterol 182 <200 mg/dL [facility] [...] factors. LDL-C is now calculated using the Arvind calculation, which is a validated novel method providing better accuracy than the Friedewald equation in the estimation of LDL-C. Magdi ANGUIANO et al. JAROD. 2013;310(19): 7958-4345 (http://education.Wel[employer]/faq/EWZ216) Chol/HDL ratio 3.9 <5.0 (calc) [facility] Non-HDL, (LDL+VLDL) 135(H) <130 mg/dL (calc) [facility] Comment: For patients with diabetes plus 1 major ASCVD risk factor, treating to a non-HDL-C goal of <100 mg/dL (LDL-C of <70 mg/dL) is considered a therapeutic option. 09/30/2024 11:4 1 AM CDT 09/30/2024 11:41 AM CDT Narrative [facility] - 10/01/2024 2:11 AM CDT FASTING:YES FASTING: YES Yamileth Smith MD LAB BLOOD ORDERABLES Final Result [facility] [address] [place] [address] * (ABNORMAL) Comprehensive metabolic panel (09/30/2024 11:41 AM CDT) Glucose 111(H) 65 - 99 mg/dL [facility] Comment: Fasting reference interval For someone without known diabetes, a glucose value between 100 and 125 mg/dL is consistent with prediabetes and should be confirmed with a follow-up test. BUN 16 7 - 25 mg/dL [facility] Creatinine 0.72 0.50 - 1.05 mg/dL [facility] eGFR 93 > OR = 60 mL/min/1.7 3m2 [facility] BUN/creat ratio SEE NOTE: 6 - 22 (calc) [facility] Comment: Not Reported: BUN and Creatinine are within reference range. Sodium 139 135 - 146 mmol/L [facility] Potassium, pl 4.3 3.5 - 5.3 mmol/L [facility] Chloride 99 98 - 110 mmol/L [facility] CO2 33(H) 20 - 32 mmol/L [facility] Calcium 9.9 8.6 - 10.4 mg/dL [facility] Protein, sr 6.8 6.1 - 8.1 g/dL [facility] Albumin 4.4 3.6 - 5.1 g/dL [facility] GLOBULIN 2.4 1.9 - 3.7 g/dL (calc) [facility] Alb/glob ratio 1.8 1.0 - 2.5 (calc) [facility] Bilirubin, total 0.4 0.2 - 1.2 mg/dL [facility] Alk phos 87 37 - 153 U/L [facility] AST 21 10 - 35 U/L [facility] ALT (SGPT) 32(H) 6 - 29 U/L [facility] 09/30/2024 11:4 1 AM CDT 09/30/2024 11:41 AM CDT Narrative [facility] - 10/01/2024 2:11 AM CDT FASTING:YES FASTING: YES Yamileth Smith MD LAB BLOOD ORDERABLES Final Result [facility] [address] [place] [address] * Hepatitis C antibody (08/14/2022 10:20 AM CORRECTION OFFICER HEAD) Hep C Ab NON-REACTI VE NON-REACT SHAINA [facility] SIGNAL TO CUT-OFF <0.02 <1.00 [facility] Comment: HCV antibody was non-reactive. There is no laboratory evidence of HCV infection. In most cases, no further action is required. However, if recent HCV exposure is suspected, a test for HCV RNA (test code 02811) is suggested. For additional information please refer to http://education.[employer].milliPay Systems/faq/MAB94o2 (This link is being provided for informational/ educational purposes only.) Blood 08/14/2022 10:2 0 AM CORRECTION OFFICER HEAD 08/14/2022 10:21 AM CORRECTION OFFICER HEAD Yamileth Smith MD LAB MICROBIOLOGY - GENERAL ORDERABLES Final Result [facility] [address] [phone] * HM MAMMOGRAPHY (05/27/2022) Mammography Normal us Historical Provider HEALTH MAINTENANCE Final Result * Colonoscopy (02/11/2022) Anatomical Region Laterality Modality Other Narrative 02/11/2022 Follow up with biopsy us Historical Provider ENDOSCOPY PROCEDURES Lupis l Result from Last 3 Months or Most Recently Relevant to Health Maintenance Insurance [employer]IC[employer] PPO Care Teams Account Services Representative Relationship Specialty Start Date End Date Yamileth Smith MD [facility] [place] [address] PCP - General Internal Medicine 09/07/18
== END 2024-11-29 15:21 | disposition home or self-care (01) ==
PROVIDERS: Visit Provider Internal Medicine
DX: Z12.31 Encounter for screening mammogram for malignant neoplasm of breast (principal)
CPT/HCPCS: 77063; 77067

== ENCOUNTER 2025-02-07 10:08 | Outpatient (CLI) | payer MEDICARE, SELFPAY ==
--- NOTE | ~2025-02-07 | DEXA_ITS ---
Bone Density Report Name: CATRACHITO DIAZ Age: 64 Sex: Female Ethnicity: White Date of : 1960 Indication: postmenopausal; screening for osteoporosis; hysterectomy; Referring Provider: OSEAS, LIBAN Zuniga Study: Bone densitometry was performed. Exam Date: February 07, 2025 Accession number: [id number] Bone Density: Region BMD T-score Z-score Classification AP Spine(L1-L4) 0.993 -0.5 1.3 Normal Femoral Neck (Left) 0.970 1.1 2.6 Normal Total Hip (Left) 1.114 1.4 2.7 Normal Femoral Neck (Right) 0.886 0.3 1.9 Normal Total Hip (Right) 1.134 1.6 2.8 Normal Total Hip Mean 1.124 1.5 2.8 Normal World Health Organization criteria for BMD impression classify patients as: Normal (T-score at or above -1.0), Osteopenia (T-score between -1.0 and -2.5), or Osteoporosis (T-score at or below -2.5). 10-year Fracture Risk: FRAX not reported because: All T-scores for Spine Total, Hip Total, Femoral Neck at or above -1.0 Clinical Information Provided by Patient: Has used the following medications: Calcium Has the following medical conditions: Hysterectomy Patient maximum height was 66.0 Menopause Age: 36 No regular weight bearing exercise Does not regularly consume dairy products Drinks caffeinated beverages Onset of menses at age 11 Number of children 3 Impression: The patient has normal bone mass. Discussion: BONE DENSITY IS ABOVE THE MINIMUM DESIRABLE LEVEL AT ALL SKELETAL SITES TESTED. This patient?s bone mineral density is above the minimum desirable level (T-score -1.0 or better) at all sites measured. The patient should follow a healthful lifestyle (good nutrition with adequate calcium and vitamin D, and appropriate weight-bearing exercise). Follow-Up: Consider repeating this study in 5 years or sooner if there is some new clinical indication. Reported by: LUCY on 02/07/2025 10:49:00 AM. Reviewed, dictated and finalized at location A.
--- OUTSIDE RECORDS SUMMARY | 2025-02-07 11:00 | XMS_ITS | Clinical Summary ---
Author Organization [facility] Address [address] [place] [id number] Care Team Providers Care Nurse Aide Name Role Phone Dmitri Hutchinson MD Primary Care Provider [phone] Social History Tobacco Use Types Packs/Day Years Used Date Smoking Tobacco: Never Assessed Comments Unknown Sex and Gender Information Value Date Recorded Sex Assigned at Not on file Legal Sex Female 8:00 PM CDT Gender Identity Not on file Sexual Orientation Not on file Last Filed Vital Signs Vital Sign Reading Time Taken Comments Blood Pressure 106/64 07/17/2016 1:38 PM SPACE STUDIES FACULTY MEMBER Pulse 76 07/17/2016 1:38 PM SPACE STUDIES FACULTY MEMBER Temperature - - Respiratory Rate - - Oxygen Saturation - - Inhaled Oxygen Concentration - - Weight 86.2 kg (190 lb) 07/17/2016 1:38 PM SPACE STUDIES FACULTY MEMBER Height 165.1 cm (5' 5) 04/11/2015 1:37 PM CDT Body Mass Index 31.62 04/11/2015 1:37 PM CDT Plan of Treatment Health Maintenance Due Date Last Done Comments Pneumococcal Vaccine: 50+ Ye ars (1 of 1 - PCV) 2009 Zoster Vaccines (1 of 2) 2009 Mammogram Screening 10/01/2017 10/02/2015 Colorectal Cancer Screening Colonoscopy (10 Years) 06/16/2023 06/16/2013 COVID-19 Vaccine ( - 2023-2 5 season) 2024 Dexa Scan [...] AM CDT COLONOSCOPY Routine 06/16/2013 12:00 AM SPACE STUDIES FACULTY MEMBER from Last 3 Months or Most Recently Relevant to Health Maintenance Results * MG SCREENING KATHRYN DIGI (10/02/2015 2:21 PM CDT) Anatomical Region Laterality Modality Breast Bilateral Mammography 10/02/2015 2:21 PM CDT 10/02/2015 2:21 PM CDT Narrative 10/02/2015 2:26 PM CDT CATRACHITO GEORGE ADMIT/SERVICE DATE: 10/02/15 ACCT: [id number] DISCHARGE DATE: : 1960 SEX: F ORD SITE: [facility] IMAG[facility] PT TYPE: REG CLI ORDERING MD: DMITRI HUTCHINSON MD STUDY DATE REPORT # ORDER # EXT ORDER ID 10/02/15 [id number] PROC CODE: [id number] PROCEDURE DESCRIPTION: MG SCREEN [...] RAHEL HERNANDEZ10/02/2015 2:22 PM Procedure Note Alejandro Nielsen MD - 04/09/2018 CATRACHITO GEORGE ADMIT/SERVICE DATE:10/02/15 ACCT: [id number] DISCHARGE DATE: : 1960 SEX: F [facility] TYPE: REG CLI ORDERING MD:DMITRI HUTCHINSON MD STUDY DATE REPORT # ORDER # EXT ORDER ID 10/02/15 [id number] PROC CODE: SCMAMDGB PROCEDURE DESCRIPTION: MG SCREEN [...] BENIGN-APPEARING CALCIFICATIONS ARE SEEN. ELECTRONICALLY SIGNED BY: ARHEL HERNANDEZ10/02/2015 2:22 PM Dmitri Hutchinson MD MAMMO Final Res ult * HEPATITIS C ANTIBODY (12/27/2014 9:58 AM CDT) HEPATITIS C AB NON-REACT SHAINA NON-REACT SHAINA [facility] TO EPIC CONVERSION SIGNAL TO CUTOFF 0.02 <1.00 [facility] TO [facility]IC CONVERSION Comment: Result Comment: Test Performed at: [facility] [address] [facility] [place] [address] JIM LEDEZMA DO,MPH 12/27/2014 9:58 AM CDT 12/27/2014 9:58 AM CDT Narrative [facility] TO EPIC CONVERSION - 12/28/2014 11:53 AM CDT Result Communication: Mail Results to Patient Dmitri Hutchinson MD LABORATORY Final Res ult Performing Organization Address [facility] Co de Phone Number [facility] TO EPIC CONVERSION * Colonoscopy (06/16/2013 12:00 AM SPACE STUDIES FACULTY MEMBER) 06/16/2013 06/16/2013 Narrative [facility] TO EPIC CONVERSION - 06/16/2013 12:00 AM SPACE STUDIES FACULTY MEMBER Documented hx of procedure Procedure Note Alejandro Nielsen MD - 04/19/2018 Documented hx of procedure Generic Conversion Md NIELSEN GI PROCEDURE ORDERABLES Final Result Performing Organization Address [facility] Co de Phone Number [facility] TO EPIC CONVERSION from Last 3 Months or Most Recently Relevant to Health Maintenance Care Teams Nurse Aide Relationship Specialty Start Date End Date Dmitri Hutchinson MD PCP - General 07/17/16
--- OUTSIDE RECORDS SUMMARY | 2025-02-07 11:00 | XMS_ITS | Encounter Summary ---
Author Organization [facility] Care Team Providers Care Cutter And Presser Name Role Phone Yamileth Smith MD Primary Care Provider [phone] Encounter Details Date Type Department Care Team (Latest Contact Info) Description 08/15/2016 Orders Only [facility] CLINCONV ProviderEliot MD [address] [place] [address] Social History Tobacco Use Types Packs/Day Years Used Date Smoking Tobacco: Never Assessed Comments Unknown Sex and Gender Information Value Date Recorded Sex Assigned at Not on file Legal Sex Female 3:40 AM PSYCHIC READER Gender Identity Female 11/05/2021 8:51 AM CDT [...] on filedocumented in this encounter Care Teams Cutter And Presser Relationship Specialty Start Date End Date Yamileth Smith MD [address] [address] PCP - General Internal Medicine 09/07/18 documented as of this encounter
--- OUTSIDE RECORDS SUMMARY | 2025-02-07 11:01 | XMS_ITS | Clinical Summary ---
Author Organization [facility] Office Center Address [address] [place] [address] Care Team Providers Care Addiction Nurse Name Role Phone Yamileth Smith MD Primary Care Provider [phone] Allergies No known active allergies Medications omeprazole (PriLOSEC) 40 mg capsule Take 1 capsule (40 mg total) by mouth daily 90 capsule 1 5 Active clobetasoL (TEMOVATE) 0.05 % ointment Apply topically 2 (two) times a day 60 g 3 5 Active simvastatin (ZOCOR) 20 mg tablet Take 1 tablet by mouth nightly 90 tablet 5 Active hydroCHLOROthia zide 12.5 mg tablet Take 1 tablet by mouth once daily 90 tablet 5 Active famotidine (PEPCID) 40 mg tablet Take 1 tablet by mouth once daily 90 tablet 5 Active losartan (COZAAR) 100 mg tablet Take 1 tablet by mouth once daily 90 tablet 5 Active HYDROcodone-uli taminophen (NORCO) 5-325 mg per tabletIndicatio ns:Pain Take 1 tablet by mouth daily as needed for pain 30 tablet 5 Active colestipoL (COLESTID) 1 gram tablet Take 1 tablet (1 g total) by mouth 2 (two) times a day 60 tablet 5 5 02/03/20 26 Active traZODone (DESYREL) 150 mg tablet Take 1 tablet (150 mg total) by mouth nightly as needed for sleep 90 tablet 1 5 03/04/20 25 Active traZODone (DESYREL) 100 mg tablet Take 1 tablet (100 mg total) by mouth nightly as needed for sleep 90 tablet 1 5 02/03/20 25 Discontinu ed(Reorder ) HYDROcodone-uli taminophen (NORCO) 5-325 mg per tabletIndicatio ns:Pain Take 1 tablet by mouth daily as needed for pain 30 tablet 5 01/21/20 25 Discontinu ed(Reorder ) Active Problems Problem Noted Date Diagnosed Date Obesity (BMI 30-39.9) 02/02/2025 Assessment & Plan (02/02/2025 12:48 PM CDT): BMI Follow-up includes: nutrition counseling. The patient was advised to exercise 5 times a week for 30 minutes each time. We discussed low calorie diet. Discussed lifestyle changes. Epigastric pain 02/02/2025 Assessment & Plan (02/02/2025 4:16 PM CDT): The patient has chronic epigastric pain. EGD showed some gastritis. She is on famotidine and omeprazole. She has persistent symptoms. Will obtain right upper quadrant ultrasound. Chronic diarrhea 02/02/2025 Assessment & Plan (02/02/2025 4:17 PM CDT): Patient with intermittent diarrhea. GI workup was negative by the rail bonder. She takes Imodium. We will try her on cholestyramine 1 tablet b.i.d.. Primary insomnia 10/04/2024 Assessment & Plan (10/04/2024 4:17 PM CDT): Patient had very good result with the Remeron but she gained weight. She likes to try different medication because of the weight gain. Will stop Remeron and start her on trazodone 100 mg q.h.s.. Skin rash 07/01/2024 Assessment & Plan (07/01/2024 4:45 PM HEALTH SAFETY COORDINATOR): Patient with skin rash on the rest of both hands and lower back area. It looks like dermatitis. She did not respond well to triamcinolone. We will try Temovate 0.05% twice daily and will make a referral to see a plate shop helper because of the chronicity of the symptoms. [...] Pap smear for cervical cancer screening 12/23/19 Assessment & Plan (10/09/2020 4:37 PM CDT): Followed by Gynecology Assessment & Plan (12/23/2019 4:54 PM CDT): The patient is under the care of casting operator helper for Pap smear and mammogram. Her last Pap smear was 3 years ago. Migraine without aura and wi thout status migrainosus, not intractable 04/05/2019 Assessment & Plan (10/04/2024 8:17 AM CDT): Asymptomatic. Stable without medications Assessment & Plan (06/02/2023 1:13 PM HEALTH SAFETY COORDINATOR): Asymptomatic. Stable without medications Assessment & Plan (02/24/2023 8:25 AM CDT): Asymptomatic Assessment & Plan (11/25/2022 4:59 PM CDT): Asymptomatic Assessment & Plan (11/05/2021 1:09 PM CDT): Asymptomatic Assessment & Plan (08/06/2021 4:32 PM HEALTH SAFETY COORDINATOR): Patient has no headache Assessment & Plan (10/09/2020 4:36 PM CDT): Asymptomatic Assessment & Plan (07/12/2019 4:23 PM HEALTH SAFETY COORDINATOR): Asymptomatic Assessment & Plan (04/05/2019 3:25 PM CDT): We will start her on Imitrex 50 mg p.r.n. And side effects were explained and how to take the medication was explained. Will obtain MRI of the brain for further evaluation. She will call for persistent headache. Essential hypertension 10/14/2016 Assessment & Plan (02/02/2025 12:48 PM CDT): Continue current medications. Discussed low-salt diet. Discussed exercise on regular basis. Will continue to monitor Assessment & Plan (10/04/2024 8:17 AM CDT): Continue current medications. Discussed low-salt diet. Discussed exercise on regular basis. Will continue to monitor Assessment & Plan (07/01/2024 4:44 PM HEALTH SAFETY COORDINATOR): Patient stated that her blood pressure sometimes runs high. She consumes large amount of salt. We discussed the importance of low-salt diet.. Increase losartan to 100 mg daily. Continue hydrochlorothiazide 25 mg daily.. Discussed exercise on regular basis. Will continue to monitor Assessment & Plan (06/02/2023 1:13 PM HEALTH SAFETY COORDINATOR): Continue current medications. Discussed low-salt diet. Discussed [...] monitor Assessment & Plan (08/15/2022 12:54 PM HEALTH SAFETY COORDINATOR): Continue current medications. Discussed low-salt diet. Discussed exercise on regular basis. Will continue to monitor Assessment & Plan (05/13/2022 1:06 PM HEALTH SAFETY COORDINATOR): Continue current medications. Discussed low-salt diet. Discussed [...] monitor Assessment & Plan (08/06/2021 12:58 PM HEALTH SAFETY COORDINATOR): Continue current medications. Discussed low-salt diet. Discussed [...] monitor Assessment & Plan (07/12/2019 4:23 PM HEALTH SAFETY COORDINATOR): Continue current medications. Discussed low-salt diet. Discussed [...] without esophagi tis 10/14/2016 Assessment & Plan (02/02/2025 3:19 PM CDT): Controlled on Prilosec and Pepcid Assessment & Plan (10/04/2024 8:17 AM CDT): Controlled on Prilosec and Pepcid Assessment & Plan (07/01/2024 8:28 AM HEALTH SAFETY COORDINATOR): Controlled on Prilosec and Pepcid Assessment & Plan (02/24/2023 5:22 PM CDT): Controlled on Prilosec and Pepcid Assessment & Plan (11/25/2022 4:59 PM CDT): Controlled on Pepcid Assessment & Plan (08/15/2022 12:54 PM HEALTH SAFETY COORDINATOR): Controlled on Prilosec and discussed avoidance of food that triggers the symptoms Assessment & Plan (05/13/2022 1:06 PM HEALTH SAFETY COORDINATOR): Controlled on Prilosec Assessment & Plan (02/04/2022 1:11 PM CDT): Controlled on Prilosec Assessment & Plan (11/05/2021 1:08 PM CDT): Controlled on Prilosec Assessment & Plan (08/06/2021 12:58 PM HEALTH SAFETY COORDINATOR): Controlled on omeprazole Assessment & Plan (04/16/2021 4:56 PM CDT): Asymptomatic Assessment & Plan (01/15/2021 12:52 PM CDT): Controlled on diet and omeprazole Assessment & Plan (03/27/2020 4:56 PM CDT): Controlled on Pepcid Assessment & Plan (12/23/2019 4:54 PM CDT): Controlled on Prilosec and Pepcid Assessment & Plan (07/12/2019 4:23 PM HEALTH SAFETY COORDINATOR): Controlled on Prilosec Assessment & Plan (04/05/2019 3:24 PM CDT): Continue Prilosec in the morning and we will add Pepcid 40 mg at night. The patient was advised to call us in 3-4 weeks for persistent symptoms and in that case will make a referral to see a rail bonder for EGD Assessment & Plan (12/30/2018 9:02 PM CDT): Controlled on current medication Mixed hyperlipidemia 10/14/2016 Assessment & Plan (02/02/2025 12:48 PM CDT): Controlled on current medications. Continue low-fat diet. Will continue to monitor . Assessment & Plan (10/04/2024 8:17 AM CDT): Controlled on current medications. Continue low-fat diet. Will continue to monitor . Assessment & Plan (07/01/2024 8:28 AM HEALTH SAFETY COORDINATOR): Controlled on current medications. Continue low-fat diet. Will continue to monitor . Assessment & Plan (06/02/2023 1:13 PM HEALTH SAFETY COORDINATOR): Controlled on current medications. Continue low-fat diet. Will continue to monitor . Assessment & Plan (02/24/2023 8:25 AM CDT): Controlled on current medications. Continue low-fat diet. Will continue to monitor . Assessment & Plan (11/25/2022 4:59 PM CDT): Controlled on current medications. Continue low-fat diet. Will continue to monitor . Assessment & Plan (08/15/2022 12:54 PM HEALTH SAFETY COORDINATOR): Controlled on current medications. Continue low-fat diet. Will continue to monitor . Assessment & Plan (05/13/2022 1:07 PM HEALTH SAFETY COORDINATOR): Controlled on current medications. Continue low-fat diet. Will continue to monitor . Assessment & Plan (02/04/2022 1:11 PM CDT): Controlled on current medications. Continue low-fat diet. Will continue to monitor . Assessment & Plan (11/05/2021 1:08 PM CDT): Controlled on current medications. Continue low-fat diet. Will continue to monitor . Assessment & Plan (08/06/2021 12:58 PM HEALTH SAFETY COORDINATOR): Controlled on current medications. Continue low-fat diet. [...] . Assessment & Plan (07/12/2019 4:23 PM HEALTH SAFETY COORDINATOR): Controlled on current medications. Continue low-fat diet. Will continue to monitor . Assessment & Plan (04/05/2019 3:24 PM CDT): Controlled on current medications. Continue low-fat diet. Will continue to monitor . Assessment & Plan (12/30/2018 9:02 PM CDT): Controlled on current medications. Continue low-fat diet. Will continue to monitor . Chronic left-sided low back pain with left-sided sciatica 10/14/2016 Assessment & Plan (02/02/2025 12:48 PM CDT): Controlled on Barnard p.r.n. Assessment & Plan (07/01/2024 8:28 AM HEALTH SAFETY COORDINATOR): Controlled on Barnard p.r.n. Assessment & Plan (06/02/2023 1:13 PM HEALTH SAFETY COORDINATOR): Controlled on Barnard p.r.n. Assessment & Plan (11/25/2022 4:59 PM CDT): Controlled on Barnard p.r.n. Assessment & Plan (08/15/2022 12:55 PM HEALTH SAFETY COORDINATOR): Controlled on Barnard p.r.n. with no side effects with the medication Assessment & Plan (05/13/2022 1:07 PM HEALTH SAFETY COORDINATOR): Controlled on Barnard Assessment & Plan (02/04/2022 1:11 PM CDT): Controlled on Barnard Assessment & Plan (11/05/2021 1:09 PM CDT): Controlled on Barnard Assessment & Plan (08/06/2021 12:58 PM HEALTH SAFETY COORDINATOR): Controlled on Barnard Assessment & Plan (04/16/2021 4:56 PM CDT): Continue Barnard p.r.n.. Advised to avoid taking NSAIDs more than on occasional basis Assessment & Plan (01/15/2021 12:52 PM CDT): Controlled on Barnard p.r.n. Assessment & Plan (10/09/2020 4:36 PM CDT): Continue Barnard p.r.n. Assessment & Plan (03/27/2020 4:56 PM CDT): Controlled on Barnard and the patient has no signs of abuse Assessment & Plan (12/23/2019 4:54 PM CDT): Controlled on Barnard Assessment & Plan (07/12/2019 4:23 PM HEALTH SAFETY COORDINATOR): Controlled on Barnard Assessment & Plan (04/05/2019 3:25 PM CDT): Controlled on Barnard Assessment & Plan (12/30/2018 9:02 PM CDT): The patient has a chronic back pain secondary to bulging disc and she takes Barnard p.r.n. With good relief. Encounters Date Type Department Care Team Description 02/02/2025 3:00 PM CDT Office Visit [facility] [address] [place] [phone] Yamileth Smith MD Chronic left-sided low back pain with left-sided sciatica (Primary Dx); Essential hypertension; Mixed hyperlipidemia; Obesity (BMI 30-39.9); BMI 31.0-31.9,adult; Gastroesophageal reflux disease without esophagitis; Epigastric pain; Chronic diarrhea 01/03/2025 Orders Only [facility] [address] [place] [address] [place] [phone] ProviderEliot MD 12/29/2024 Telephone [facility] [address] [place] [address] Yamileth Smith MD Appointment Request 11/29/2024 Orders Only [facility] Information Management [address] [place] [address] Yamileth Smith MD from Last 3 Months [...] drink = 0.6 oz pur e alcohol) PHQ-2 Answer Date Recorded PHQ-2 Total Score (If total score is 3 or more points, staff should administer the PHQ-9) 0 02/02/2025 AUDIT-C Answer Date Recorded Q1: How often do you have a drink containing alcohol? Never 02/02/2025 Q2: How many drinks containi ng alcohol do you have on a typical day when you are drinking? Patient does not drink Q3: How often do you have si x or more drinks on one occasion? Never 02/02/2025 Comments Unknown Sex and Gender Information Value Date Recorded Sex Assigned at Not on file Legal Sex Female 3:40 AM HEALTH SAFETY COORDINATOR Gender Identity Female 11/05/2021 8:51 AM CDT Sexual Orientation Not on file Obstetrics History Last Filed Vital Signs Vital Sign Reading Time Taken Comments Blood Pressure 126/80 02/02/2025 2:57 PM CDT Pulse 68 02/02/2025 2:57 PM CDT Temperature 36.4 C (97.6 F) 02/02/2025 2:57 PM CDT Respiratory Rate 16 02/02/2025 2:57 PM CDT Oxygen Saturation 97% 02/02/2025 2:57 PM CDT Inhaled Oxygen Concentration - - Weight 89.9 kg (198 lb 3.2 oz) 02/02/2025 2:57 P M CDT Height 167.6 cm (5' 6) 02/02/2025 2:57 PM CDT Body Mass Index 31.99 02/02/2025 2:57 PM CDT Plan of Treatment Health Maintenance Due Date Last Done Comments Osteoporosis Screening-Bone Density Scan 1960 Hepatitis B Screening 1977 Zoster Vaccine (1 of 2) 2009 Covid-19 Vaccine (2023-2 5 season) 2024 06/24/2021, 10/02/2020, 09/11/2020 Well Visit 65+ 07/01/2025 07/01/2024 Breast Cancer Screening-Mammogram 11/29/2025 11/29/2024, 05/27/2022, 03/05/2021, Additional history exists Colon Cancer Screening-FIT 01/02/202601/02, 12/30/2024, 02/11/2022, Additional history exists Depression Screening 02/02/2026 02/02/2025, 10/04/2024, 07/01/2024, Additional history exists Fall Risk Assessment 02/02/2026 02/02/2025, 10/04/2024, 07/01/2024, Additional history exists Colon Cancer Screening-Colonoscopy 01/03/2028 01/02/2025, 12/30/2024, 02/11/2022, Additional history exists DTaP/Tdap/Td Vaccine (3 - Td or Tdap) 07/12/2029 07/12/2019, 07/17/2016 Hepatitis C Screening Completed 08/14/2022 Influenza Vaccine Discontinued 07/01/2024, , 05/13/2022, Additional history exists Pneumococcal vaccine 65+ Completed 07/01/2024 Colon Cancer Screening-CT Colonography Discontinued 01/02/2025, 12/30/2024, 02/11/2022, Additional history exists Colon Cancer Screening-DNA Stool Discontinued 01/02/2025, 12/30/2024, 02/11/2022, Additional history exists Colon Cancer Screening-Sigmoidoscopy Discontinued 01/02/2025, 12/30/2024, 02/11/2022, Additional history exists Procedures Procedure Name Priority Date/Time Associated Diagnosis Comments COLONOSCOPY Routine 01/02/2025 4:11 PM CDT COLONOSCOPY Routine 12/30/2024 4:01 PM CDT SCAN - RADIOLOGY/IMAGING 11/29/2024 HEPATITIS C ANTIBODY Routine 08/14/2022 10:20 AM HEALTH SAFETY COORDINATOR Encounter for hepatitis C screening test for low risk patient HM MAMMOGRAPHY Routine 05/27/2022 from Last 3 Months or Most Recently Relevant to Health Maintenance Results * Colonoscopy (01/02/2025 4:11 PM CDT) Anatomical Region Laterality Modality Other Historical Provider MD ENDOSCOPY PROCEDURES Lupis l Result * Colonoscopy (12/30/2024 4:01 PM CDT) Anatomical Region Laterality Modality Other us Historical Provider MD ENDOSCOPY PROCEDURES Lupis l Result * SCAN - RADIOLOGY/IMAGING (11/29/2024) Anatomical Region Laterality Modality Other Yamileth Smith MD Final Resul t * Hepatitis C antibody (08/14/2022 10:20 AM HEALTH SAFETY COORDINATOR) Hep C Ab NON-REACTI VE NON-REACT SHAINA [facility] SIGNAL TO CUT-OFF <0.02 <1.00 [facility] Comment: HCV antibody was non-reactive. There is no laboratory evidence of HCV infection. In most cases, no further action is required. However, if recent HCV exposure is suspected, a test for HCV RNA (test code 57214) is suggested. For additional information please refer to http://education.Toothpick/faq/XMN94q4 (This link is being provided for informational/ educational purposes only.) Blood 08/14/2022 10:2 0 AM HEALTH SAFETY COORDINATOR 08/14/2022 10:21 AM HEALTH SAFETY COORDINATOR Yamileth Smith MD LAB MICROBIOLOGY - GENERAL ORDERABLES Final Result [facility] [address] [place] [address] * MAMMOGRAPHY (05/27/2022) Mammography Normal Historical Provider HEALTH MAINTENANCE Final Result from Last 3 Months or Most Recently Relevant to Health Maintenance Insurance [employer] PPO Care Teams Addiction Nurse Relationship Specialty Start Date End Date Yamileth Smith MD [address] [place] [address] PCP - General Internal Medicine 09/07/18
== END 2025-02-07 10:09 | disposition home or self-care (01) ==
PROVIDERS: Visit Provider Internal Medicine
DX: Z78.0 Asymptomatic menopausal state (principal)
CPT/HCPCS: 77080